=== PATIENT | female | born 1980 | race Caucasian/White ===

== ENCOUNTER 2020-12-20 10:18 | Outpatient (CLI) | payer OTHER | END 2020-12-20 10:38 | disposition home or self-care (01) | LOC: RX STUDY 10:18 | PROVIDERS: ATTEND General Practice | DX: N28.89 Other specified disorders of kidney and ureter (principal); N13.70 Vesicoureteral-reflux, unspecified; K21.9 Gastro-esophageal reflux disease without esophagitis ==